=== PATIENT | female | born 1965 | race Caucasian/White ===

== ENCOUNTER 2016-12-07 18:38 | Emergency (ER) | payer BC, OTHER ==
[~2016-12-07] VITALS: Ht 165.1 cm; Wt 103.0 kg
[2016-12-07] MEDS ORDERED: FLUT1SPR2 (18:54)
[2016-12-07] MEDS ORDERED: CETI10TA (18:54)
[2016-12-07] MEDS ORDERED: PRED20TA (18:54)
[2016-12-07] MEDS ORDERED: KETOROLAC 60 MG/2 ML VIAL (J1885) IM ONE (20:30)
[2016-12-07] MEDS ORDERED: diazePAM 5 MG TAB PO ONE (20:30)
[2016-12-07] MEDS ORDERED: VALI10TA PO (20:35)
[2016-12-07] MEDS ORDERED: KETO10TAB PO (20:35)
[2016-12-07 21:16] VITALS: BP 170/94
--- NOTE | 2016-12-08 01:43 | REP ---
Clinical: Trauma. Technique: Frontal view of the chest with multiple views of the right hemithorax. Findings: Frontal view of the chest demonstrates no acute cardiopulmonary process. Multiple views of the right hemithorax demonstrates no obvious acute rib fracture or pathology. Impression: Normal right rib series Signed by Dale Mireles MD 12/08/2016 01:35 A
== END 2016-12-07 21:17 | disposition home or self-care (01) ==
LOC: M ED 19:47
DX: S29.011A Strain of muscle and tendon of front wall of thorax, initial encounter (principal); X58.XXXA Exposure to other specified factors, initial encounter; Y92.89 Other specified places as the place of occurrence of the external cause; Y93.89 Activity, other specified; Y99.8 Other external cause status; I10 Essential (primary) hypertension; Z88.5 Allergy status to narcotic agent; Z88.0 Allergy status to penicillin; Z88.8 Allergy status to other drugs, medicaments and biological substances; Z79.899 Other long term (current) drug therapy
CPT/HCPCS: 71101; 96372; 99282; J1885

== ENCOUNTER → 2017-10-19 | Outpatient (CLI) | payer BC ==
[2017-10-19 08:49] LABS: BASO % 0.5 % (0.0-1.0); EOS # 0.2 10^3/uL (0.0-0.50); EOS % 1.7 % (0.0-3.0); HEMATOCRIT 42.6 % (36.0-47.0); HEMOGLOBIN 13.9 g/dl (12.0-16.0); IMMATURE GRANULOCYTE % 0.3 % (0-3.0); LYMPH # 1.9 10^3/uL (1.5-4.5); LYMPH % 21.9 % (24.0-44.0); MEAN CORPUSCULAR HEMOGLOBIN 29.5 pg (27.0-33.0); MEAN CORPUSCULAR HGB CONC 32.6 g/dl (32.0-36.5); MEAN CORPUSCULAR VOLUME 90.4 fl (80.0-96.0); MONO # 0.7 10^3/uL (0.0-0.8); MONO % 8.2 % (0.0-5.0); NEUTROPHILS # 5.9 10^3/uL (1.8-7.7); NEUTROPHILS % 67.4 % (36.0-66.0); PLATELET COUNT, AUTOMATED 350 10^3/uL (150-450); RED BLOOD COUNT 4.71 10^6/uL (4.00-5.40); RED CELL DISTRIBUTION WIDTH 14.2 % (11.5-14.5); WHITE BLOOD COUNT 8.8 10^3/uL (4.0-10.0)
[2017-10-19 09:19] LABS: ALBUMIN 3.6 GM/DL (3.2-5.2); ALBUMIN/GLOBULIN RATIO 1.29 (1.00-1.93); ALKALINE PHOSPHATASE 118 U/L (45-117); ALT/SGPT 14 U/L (12-78); ANION GAP 7 MEQ/L (8-16); AST/SGOT 10 U/L (7-37); BILIRUBIN,TOTAL 1.1 MG/DL (0.2-1.0); BLOOD UREA NITROGEN 7 MG/DL (7-18); CALCIUM LEVEL 8.5 MG/DL (8.5-10.1); CARBON DIOXIDE LEVEL 26 MEQ/L (21-32); CHLORIDE LEVEL 110 MEQ/L (98-107); CHOLESTEROL LEVEL 176 MG/DL (<200); CHOLESTEROL RISK RATIO 3.384 (<5); CREATININE FOR GFR 0.72 MG/DL (0.55-1.30); FREE T4 0.94 NG/DL (0.76-1.46); GLOMERULAR FILTRATION RATE > 60.0 (>51); GLUCOSE, FASTING 98 MG/DL (70-100); HDL CHOLESTEROL 52 MG/DL (>40); LDL CHOLESTEROL 105.6 MG/DL (<100); NON-HDL-C 124 MG/DL; POTASSIUM SERUM 3.9 MEQ/L (3.5-5.1); SODIUM LEVEL 143 MEQ/L (136-145); TOTAL PROTEIN 6.4 GM/DL (6.4-8.2); TRIGLYCERIDES LEVEL 92 MG/DL (<150)
[2017-10-19 09:23] LABS: ESTIMATED AVERAGE GLUCOSE 114 MG/DL (60-110); HEMOGLOBIN A1c 5.6 %
[2017-10-19 09:57] LABS: TOTAL 25(OH) VITAMIN D 15.8 NG/ML (30.0-100.0)
[2017-10-19 09:58] LABS: PROGESTERONE 0.3 NG/ML
[2017-10-19 09:59] LABS: LUTEINIZING HORMONE 9.9 mIU/mL
[2017-10-19 10:00] LABS: FOLLICLE STIMULATING HORMONE 15.2 mIU/mL
[2017-10-22 14:11] LABS: ESTROGENS TOTAL 201 pg/mL (.)
== END ==
LOC: M LAB 08:08
DX: N95.1 Menopausal and female climacteric states (principal); Z13.220 Encounter for screening for lipoid disorders; Z13.29 Encounter for screening for other suspected endocrine disorder; K21.9 Gastro-esophageal reflux disease without esophagitis; Z79.899 Other long term (current) drug therapy; E55.9 Vitamin D deficiency, unspecified; E78.00 Pure hypercholesterolemia, unspecified; K52.9 Noninfective gastroenteritis and colitis, unspecified
CPT/HCPCS: 83001

== ENCOUNTER → 2017-10-31 | Outpatient (CLI) | payer BC | LOC: M RAD 13:15 | DX: Z12.31 Encounter for screening mammogram for malignant neoplasm of breast (principal) | CPT/HCPCS: 77067 ==

== ENCOUNTER → 2019-07-19 | Outpatient (CLI) | payer OTHER ==
[~2019-07-19] MED LIST: CETI10TA; FLUT1SPR2; KETO10TAB PO; PRED20TA; VALI10TA PO
--- NOTE | 2019-07-19 11:00 | REP ---
Clinical: Sprain. Technique: AP, lateral, bilateral oblique views of the left ankle. Findings: Subtle nondisplaced fracture of the medial malleolus is appreciated and should be correlated with mechanism of injury and point of tenderness. Underlying age-related changes noted. Impression: Subtle nondisplaced fracture of the medial malleolus. Electronically Signed by Dale Mireles MD 07/19/2019 10:52 A
--- NOTE | 2019-07-19 11:01 | REP ---
Clinical: Trauma. Technique: AP, lateral, bilateral oblique views of the left foot. Findings: There is an oblique displaced fracture of the fifth metatarsal shaft with overlying soft tissue swelling. Remainder examination appears normal. Impression: Oblique displaced fracture of the fifth metatarsal bone. Electronically Signed by Dale Mireles MD 07/19/2019 10:53 A
== END ==
LOC: M WUC 10:32
PROVIDERS: ATTEND Physician Assistant
DX: S92.352A Displaced fracture of fifth metatarsal bone, left foot, initial encounter for closed fracture (principal); S82.55XA Nondisplaced fracture of medial malleolus of left tibia, initial encounter for closed fracture; X58.XXXA Exposure to other specified factors, initial encounter

== ENCOUNTER 2019-07-30 11:34 | Day surgery (SDC) | payer OTHER ==
[~2019-07-30] VITALS: Ht 167.6 cm; Wt 93.5 kg
[~2019-07-30 11:34] MED LIST changes: +LEXA1TAB PO; +LR 1,000 ML IV ONE
[2019-07-30] MEDS ORDERED: ceFAZolin SOD 2 GM in IV 1 EA IV ONE (12:45)
[2019-07-30] MEDS ORDERED: BUPIVACAINE HCL 0.5% 30 ML VIAL As Ordered ONE (12:55)
[2019-07-30] MEDS ORDERED: LIDOCAINE 2% INJ 100 MG/5 ML SDV (FOR ANES.) As Ordered ONE (13:03)
[2019-07-30] MEDS ORDERED: PROPOFOL 200 MG/20 ML VIAL As Ordered ONE (13:03)
[2019-07-30] MEDS ORDERED: ROCURONIUM BROMIDE 50 MG/5 ML VIAL As Ordered ONE (13:03)
[2019-07-30] MEDS ORDERED: fentaNYL 100 MCG/2 ML INJECTION (J3010) As Ordered ONE (13:03)
[2019-07-30] MEDS ORDERED: MIDAZOLAM INJ 2 MG/2 ML VIAL (J2250) As Ordered ONE (13:03)
[2019-07-30] MEDS ORDERED: dexameTHASONE 4 MG/ML 1ML VIAL (J1100) As Ordered ONE (13:03)
[2019-07-30] MEDS ORDERED: HYDROmorphone HCL 2 MG/ML 1ML VIAL (J1170) As Ordered ONE (13:04)
[2019-07-30] MEDS ORDERED: SUGAMMADEX SODIUM 500 MG/5 ML VIAL (BRIDION) As Ordered ONE (13:20)
[2019-07-30] MEDS ORDERED: ONDANSETRON 4MG/2ML VIAL (J2405) As Ordered ONE (13:21)
[2019-07-30] MEDS ORDERED: KETOROLAC 60 MG/2 ML VIAL (J1885) As Ordered ONE (14:14)
--- NOTE | 2019-07-30 14:34 | REP ---
C-ARM VIEWS LEFT FOOT AND ANKLE: Multiple C-arm views of the left foot and ankle performed. There is placement of metallic plate and screws in the 5th metatarsal. Osseous structures are well-aligned. 23 seconds of fluoroscopy time utilized. Electronically Signed by Benny Khan MD 08/04/2019 09:44 A
[2019-07-30] MEDS ORDERED: fentaNYL 100 MCG/2 ML INJECTION (J3010) IV PRN (15:00)
[2019-07-30] MEDS ORDERED: oxyCODONE 5MG TAB PO PRN (15:00)
[2019-07-30] MEDS ORDERED: LR 1,000 ML IV SCH ×2 (15:00→16:01)
[2019-07-30] MEDS ORDERED: ONDANSETRON 4MG/2ML VIAL (J2405) IV PRN (15:00)
[2019-07-30 17:15] VITALS: BP 154/99
--- NOTE | 2019-08-07 19:38 | RO ---
DATE OF PROCEDURE: 08/06/2019 PREPROCEDURE DIAGNOSIS: Left 5th metatarsal fracture. POSTPROCEDURE DIAGNOSIS: Left 5th metatarsal fracture. PROCEDURE: Open reduction internal fixation left 5th metatarsal. SURGEON: Parul Levy MD TRACTOR ENGINE MECHANIC: TEODORO Llanos ANESTHESIA: LMA. ESTIMATED BLOOD LOSS: 25 mL. COMPLICATIONS: None. CONDITION: Stable to recovery. INDICATIONS: Whitney Hernandez is a 53-year-old female who sustained a left 5th metatarsal fracture and a nondisplaced medial malleolar fracture after a fall. The 5th metatarsal fracture had significant comminution and displacement. The patient was given options for both operative and nonoperative treatment. She elected for operative fixation of the fracture. Risks and benefits of surgery were discussed with the patient in detail and included but are not limited to infection, damage to nerves and blood vessels, continued pain and stiffness, need for additional procedures. Informed consent was obtained. DESCRIPTION OF PROCEDURE: The patient was met in the preoperative holding area where the right lower extremity was marked as the correct operative site. She was then taken to the operating room and placed in the supine position on the operating room table. Bony prominences were well padded. A sterile tourniquet was placed on the left upper thigh. Antibiotics were given within 60 minutes prior to incision. Left lower extremity was prepped and draped in the normal sterile fashion. An official time-out was held where the correct patient, operative side, and operative procedure were verified. The leg was exsanguinated with an Esmarch and tourniquet inflated to 250 mmHg. An incision was made over the dorsolateral aspect of the 5th metatarsal. Careful dissection was performed to the level of the 5th metatarsal. There was significant comminution and displacement of the comminuted fragments. Patient's fracture was reduced and held in place with K-wires. Given the comminuted nature of the fracture, there were no amenable fragments for a lag screw fixation and so a bridge plate construct was chosen. I used an Arthrex 7-hole plate, and this was placed over the dorsolateral aspect of the bone. It was secured distally with a locking screw and proximally with three screws as well. Using the mini C-arm, x-rays were obtained in AP, oblique, and mortise views. They were found to be satisfactory. They were satisfactory for both hardware placement and copious irrigation was performed. At this point, I did take x-ray of the ankle and the medial malleolus fracture was still found to be nondisplaced. Decision was made not to proceed with operative fixation of the medial malleolus fracture. Copious irrigation was performed to the left 5th metatarsal site. Soft tissues were closed with #3-0 Vicryl and the skin was closed with #3-0 nylon. A well-padded dressing was applied in addition to a well-padded splint. Patient was then extubated and transferred to the recovery room in stable condition. PLAN: The patient will be non-weightbearing in the left lower extremity for 6 weeks. She will be on aspirin for deep vein thrombosis (DVT) prophylaxis. Will see her back in 2 weeks for wound check and suture removal. She will need to go into a cast for 2 weeks if she can tolerate it. If not, will transition her to a boot.
== END 2019-07-30 17:30 | disposition home or self-care (01) ==
LOC: M SDC 11:34
PROVIDERS: ATTEND Orthopaedic Surgery
DX: S92.352A Displaced fracture of fifth metatarsal bone, left foot, initial encounter for closed fracture (principal); W19.XXXA Unspecified fall, initial encounter; Y92.89 Other specified places as the place of occurrence of the external cause; Y93.9 Activity, unspecified; Y99.9 Unspecified external cause status; F41.9 Anxiety disorder, unspecified; F32.9 Major depressive disorder, single episode, unspecified; Q61.3 Polycystic kidney, unspecified; Z88.5 Allergy status to narcotic agent; Z88.0 Allergy status to penicillin; Z91.040 Latex allergy status; Z88.8 Allergy status to other drugs, medicaments and biological substances; Z79.899 Other long term (current) drug therapy; Z87.891 Personal history of nicotine dependence
CPT/HCPCS: 28485; 76000; C1713; J0690; J1100; J1170; J1885; J2250; J2405; J3010

== ENCOUNTER → 2021-06-15 | Outpatient (REF) | payer BC, OTHER ==
[~2021-06-15] MED LIST changes: -LR 1,000 ML IV ONE
== END ==
LOC: M LAB REF 15:35
PROVIDERS: ATTEND Physician Assistant
DX: R30.0 Dysuria (principal)

== ENCOUNTER → 2021-08-04 | Outpatient (REF) | payer BC ==
[2021-08-04 18:26] LABS: HEPATITIS B CORE ANTIBODY IGM NEGATIVE (NEGATIVE); HEPATITIS B SURFACE ANTIGEN NEGATIVE (NEGATIVE); HEPATITIS C VIRUS ABY INDEX 0.1 INDEX (<0.8)
== END ==
LOC: M LAB REF 16:19
PROVIDERS: ATTEND Internal Medicine
DX: Z72.51 High risk heterosexual behavior (principal)